=== PATIENT | female | born 1980 | race Caucasian/White ===

== ENCOUNTER 2017-09-16 05:40 | Day surgery (SDC) | payer OTHER ==
[~2017-09-16] VITALS: Ht 160 cm; Wt 83.0 kg
[2017-09-16] MEDS ORDERED: LR 1,000 ML IV ONE (08:03)
[2017-09-16] MEDS ORDERED: NALBUPHINE HCL 10 MG/ML AMP IVP PRN (08:15)
[2017-09-16] MEDS ORDERED: NALOXONE HCL 0.4 MG/ML AMP (NARCAN) IVP PRN (08:15)
[2017-09-16] MEDS ORDERED: DIPHENHYDRAMINE INJ 50 MG/ML VIAL IVP PRN (08:15)
[2017-09-16] MEDS ORDERED: ePHEDrine sulfate 50 MG/ML VIAL IVP PRN (08:15)
[2017-09-16] MEDS ORDERED: fentaNYL CITRATE/PF 100 MCG/2 ML AMP IVP PRN (08:15)
[2017-09-16] MEDS ORDERED: ONDANSETRON HCL 4 MG/2 ML VIAL IVP PRN ×3 (08:15→09:30)
[2017-09-16] MEDS ORDERED: PROMETHAZINE HCL 25 MG/ML AMP IM PRN (09:30)
[2017-09-16] MEDS ORDERED: HYDROmorphone 2 MG TAB PO PRN (09:30)
[2017-09-16] MEDS ORDERED: OXYCODONE/ACETAMINOPHEN 5-325 TABLET PO PRN (09:30)
[2017-09-16] MEDS ORDERED: MORPHINE SULFATE 10 MG/ML VIAL IVP ONE (09:35)
[2017-09-16] MEDS ORDERED: fentaNYL CITRATE/PF 100 MCG/2 ML AMP IVP ONE (09:35)
[2017-09-16] MEDS ORDERED: NS 1000 ML BAG IV ONE (09:35)
[2017-09-16] MEDS ORDERED: METOCLOPRAMIDE HCL 10 MG/2 ML VIAL IVP ONE (09:35)
[2017-09-16] MEDS ORDERED: MIDAZOLAM HCL 5 MG/5 ML VIAL IVP ONE (09:35)
[2017-09-16] MEDS ORDERED: BUPIVACAINE /PF 0.25% 30 ML VIAL INJ ONE (09:35)
[2017-09-16] MEDS ORDERED: SEVOFLURANE 15 MIN GAS INH ONE (09:35)
[2017-09-16] MEDS ORDERED: PROPOFOL 200MG/ 20ML VIAL (DIPRIVAN) IV ONE (09:35)
[2017-09-16] MEDS ORDERED: GLYCOPYRROLATE 0.2 MG/ML VIAL IJ ONE (09:35)
[2017-09-16] MEDS ORDERED: KETOROLAC TROMETHAMINE 30 MG VIAL IVP ONE (09:35)
[2017-09-16] MEDS ORDERED: DEXAMETHASONE SOD PHOSPHATE 4 MG/ML VIAL IVP ONE (09:35)
[2017-09-16] MEDS ORDERED: NS IRRIG SOLN 1000 ML IR ONE (09:35)
[2017-09-16] MEDS ORDERED: ceFAZolin SODIUM 1 GM VIAL IV ONE (09:35)
[2017-09-16] MEDS ORDERED: ROCURONIUM BROMIDE 10 MG/ML (ZEMURON) IV ONE (09:35)
[2017-09-16] MEDS ORDERED: LR 1,000 ML IV.SOLN IV ONE (09:35)
[2017-09-16] MEDS ORDERED: fentaNYL CITRATE/PF 100 MCG/2 ML AMP ONE (10:06)
[2017-09-16 11:38] VITALS: BP_SYST 117
[2017-09-16] MEDS ORDERED: OXYCODONE/ACETAMINOPHEN 5-325 TABLET ONE (11:57)
[2017-09-16] MEDS ORDERED: ONDANSETRON HCL 4 MG/2 ML VIAL ONE (13:06)
== END 2017-09-16 14:20 | disposition home or self-care (01) ==
LOC: SDS 05:40 → SMU 05:40 → SDS 14:20
PROVIDERS: ATTEND Obstetrics & Gynecology
DX: N87.9 Dysplasia of cervix uteri, unspecified (principal); Z79.899 Other long term (current) drug therapy; Z98.890 Other specified postprocedural states; E66.8 Other obesity
CPT/HCPCS: 36415; 58571; 86886; 86900; 86901; 88307; C1727; J0690; J1100; J1885; J2250; J2270; J2405; J2704; J2765; J3010; J3490 ×2; J7030; J7120; E0190